=== PATIENT | male | born 2000 | race Caucasian/White ===

== ENCOUNTER 2021-01-24 17:37 | Inpatient (IN) ==
[2021-01-24] MEDS ORDERED: ONDANSETRON 4 MG/2 ML VIAL ONE (18:28)
[2021-01-24] MEDS ORDERED: HYDROmorphone 2 MG/1 ML VIAL ONE (18:28)
[2021-01-24] MEDS ORDERED: HYDROmorphone 2 MG/1 ML VIAL IV STA (18:42)
[2021-01-24] MEDS ORDERED: SODIUM CHLORIDE 0.9% 1,000 ML IV STA (18:42)
[2021-01-24] MEDS ORDERED: ONDANSETRON 4 MG/2 ML VIAL IV STA (18:42)
[2021-01-24] MEDS ORDERED: ONDANSETRON 4 MG/2 ML VIAL IV PRN (20:52)
[2021-01-24] MEDS ORDERED: ACETAMINOPHEN 325 MG TABLET PO PRN (20:52)
[2021-01-24] MEDS ORDERED: HYDROmorphone 2 MG/1 ML VIAL IV PRN (20:52)
[2021-01-24] MEDS: SODIUM CHLORIDE 0.9% 1,000 ML IV SCH (21:16)
[2021-01-24] MEDS: PIPERACILLIN/TAZOBACTAM 3,375 MG in SODIUM CHLORIDE 0.9% 100 ML IV SCH (23:57)
[2021-01-25 05:50] LABS: Basophils # 0.1 10*3/uL (0.0-0.2); Basophils % 0.3 % (0.0-0.8); Eosinophils # 0.1 10*3/uL (0.0-0.87); Eosinophils % 0.4 % (0.00-10.9); Hemoglobin 15.2 GM/DL (14.0-18.0); Immature Granulocytes Absolute 0.21 #; Lymphocytes # 2.9 10*3/uL (1.4-4.0); Lymphocytes % 13.1 % (21.2-54.2); Mean Corpuscular Volume 92.7 FL (87-102); Mean Platelet Volume 9.5 FL (9.6-12.0); Monocytes % 12.9 % (1.7-12.7); Neutrophils % 72.3 % (38.7-73.9); Platelet Count 301 T/CUMM (130-400); Red Blood Count 4.96 MC/CUMM (3.8-5.5); Red Cell Distribution Width 12.2 % (9.3-17.3); White Blood Count 21.9 T/CUMM (4-12)
[2021-01-25 06:01] LABS: Albumin 2.6 G/DL (3.4-5.0); Osmolality,Calculated 274.7 MOS/KG (273-304); Potassium 4.5 MMOL/L (3.5-5.1); Total Protein 7.3 G/DL (6.4-8.2)
[2021-01-25] MEDS: PIPERACILLIN/TAZOBACTAM 3,375 MG in SODIUM CHLORIDE 0.9% 100 ML IV SCH ×2 (06:23→14:56)
[2021-01-25] MEDS: PANTOPRAZOLE 40 MG VIAL IV SCH (09:16)
[2021-01-25] MEDS: SODIUM CHLORIDE 0.9% 1,000 ML IV SCH (09:59)
[2021-01-25] MEDS ORDERED: HYDROmorphone 2 MG/1 ML VIAL IV PRN ×2 (11:06)
[2021-01-25] MEDS ORDERED: ONDANSETRON 4 MG/2 ML VIAL IV PRN (11:06)
[2021-01-25] MEDS ORDERED: ALUMINUM/MAGNES/SIMETH MAX STR 30 ML UDCUP PO PRN (21:40)
[2021-01-26] MEDS: PIPERACILLIN/TAZOBACTAM 3,375 MG in SODIUM CHLORIDE 0.9% 100 ML IV SCH ×2 (01:42→06:28)
[2021-01-26 07:17] LABS: Basophils # 0.1 10*3/uL (0.0-0.2); Basophils % 0.4 % (0.0-0.8); Eosinophils # 0.2 10*3/uL (0.0-0.87); Eosinophils % 1.4 % (0.00-10.9); Hematocrit 47.8 VOL% (42.0-52.0); Hemoglobin 16.4 GM/DL (14.0-18.0); Immature Granulocytes % 0.7 %; Lymphocytes # 3.1 10*3/uL (1.4-4.0); Mean Corpuscular HGB Conc 34.3 GM/DL (32-36); Mean Corpuscular Volume 90.7 FL (87-102); Mean Platelet Volume 9.5 FL (9.6-12.0); Monocytes % 9.4 % (1.7-12.7); Neutrophils % 66.1 % (38.7-73.9); Platelet Count 320 T/CUMM (130-400); Red Blood Count 5.27 MC/CUMM (3.8-5.5); Red Cell Distribution Width 12.1 % (9.3-17.3)
[2021-01-26 07:36] LABS: Albumin 2.8 G/DL (3.4-5.0); Bilirubin,Total 0.9 MG/DL (0.20-1.00); Calcium 9.3 MG/DL (8.5-10.1); Osmolality,Calculated 271.8 MOS/KG (273-304); Potassium 3.8 MMOL/L (3.5-5.1); Total Protein 7.9 G/DL (6.4-8.2)
[2021-01-26 08:23] VITALS: BP 132/76
[2021-01-26] MEDS ORDERED: CEFUROXIME 500 MG TABLET PO SCH (09:00)
[2021-01-26] MEDS: PANTOPRAZOLE 40 MG VIAL IV SCH (09:21)
== END 2021-01-26 10:24 | disposition home or self-care (01) | DRG 373 ==
LOC: N.ED 17:37 → N.EDINP 18:48 → N.TELEN 23:35
PROVIDERS: ADMIT Surgery; ATTEND Surgery